=== PATIENT | male | born 1985 | race Caucasian/White ===

== ENCOUNTER 2021-03-21 01:55 | Inpatient (IN) | payer BC ==
[~2021-03-21] VITALS: Ht 162.6 cm; Wt 63.5 kg
--- NOTE | 2021-03-21 02:11 | NUR ---
Dr. Griggs at bedside for MSE.
[2021-03-21] MEDS ORDERED: ONDANSETRON 4 MG/2 ML VIAL IV ONE (02:15)
[2021-03-21] MEDS ORDERED: MORPHINE SULFATE 4 MG/1 ML DISP.SYRIN IV ONE (02:15)
[2021-03-21] MEDS ORDERED: IV NORMAL SALINE 100 ML BAG IV ONE (02:15)
[2021-03-21] MEDS ORDERED: MORPHINE SULFATE 4 MG/1 ML DISP.SYRIN ONE (02:24)
[2021-03-21] MEDS ORDERED: ONDANSETRON 4 MG/2 ML VIAL ONE (02:25)
[2021-03-21 02:30] LABS: HEMATOCRIT 45.6 % (36.7-47.1); MEAN CORPUSCULAR HEMOGLOBIN 31.6 uug (23.8-33.4); MEAN CORPUSCULAR VOLUME 91.2 fL (73.0-96.2); PLATELET COUNT (AUTO) 244 K/uL (152-348)
[2021-03-21 02:35] LABS: POTASSIUM 4.3 mmol/L (3.5-5.1)
[2021-03-21 02:41] LABS: BILIRUBIN,TOTAL 1.4 mg/dL (0.2-1.0); TOTAL PROTEIN, SERUM 7.1 g/dL (6.4-8.2)
[2021-03-21] MEDS ORDERED: SWABABLE VALVE TRANSFER SET EA MC ONE (02:42)
[2021-03-21] MEDS ORDERED: IOHEXOL 300MG/ML 100 ML INFUS..BTL ONE (02:42)
[2021-03-21] MEDS ORDERED: IV NORMAL SALINE 250 ML IV ONE (02:42)
--- NOTE | 2021-03-21 02:43 | NUR ---
Pt out of ER from CT.
[2021-03-21] MEDS ORDERED: METRONIDAZOLE 500 MG/NS 100 ML PIGGYBACK IV ONE (02:45)
[2021-03-21] MEDS ORDERED: CEFTRIAXONE 1 G in IV DEXTROSE 5% 50 ML IV ONE (02:45)
[2021-03-21] MEDS ORDERED: CEFTRIAXONE /D5W 50ML IVPB **ER PYXIS IV ONE (02:55)
--- NOTE | 2021-03-21 02:55 | NUR ---
Pt back to ER from CT.
[2021-03-21 03:18] LABS: *BILIRUBIN,URIN NEGATIVE (NEGATIVE); *BLOOD, URINE NEGATIVE (NEGATIVE); *CLARITY,URINE CLEAR (CLEAR); *COLOR,URINE YELLOW (YELLOW); *KETONES,URINE NEGATIVE (NEGATIVE); *UROBILINOGEN,URINE 0.2 E.U./dl (NORMAL); LEUKOCYTE ESTERASE ,URINE NEGATIVE (NEGATIVE); NITRITE, URINE NEGATIVE (NEGATIVE); PH,URINE 7.5 (5.0-8.0); UGLUCOSE NEGATIVE (NEGATIVE)
[2021-03-21] MEDS ORDERED: METRONIDAZOLE 500 MG/NS 100ML 100 ML IV ONE (03:22)
--- NOTE | 2021-03-21 04:01 | NUR ---
CALLED [facility] SPOKE WITH NATHALIE, CT IS "BEING READ RIGHT NOW".
--- NOTE | 2021-03-21 04:13 | NUR ---
Called [facility] to page Marichuy Ceron NP.
--- NOTE | 2021-03-21 04:21 | NUR ---
Dr. Griggs on panel call with Marichuy Ceron NP.
[2021-03-21] MEDS ORDERED: IV D5W-0.45% NS +20 KCL 1,000 ML IV PRN (04:45)
[2021-03-21] MEDS ORDERED: MORPHINE SULFATE 2 MG/1 ML DISP.SYRIN IV PRN (04:45)
[2021-03-21] MEDS ORDERED: ACETAMINOPHEN 325 MG TABLET PO PRN (04:45)
[2021-03-21] MEDS ORDERED: ONDANSETRON 4 MG/2 ML VIAL IV PRN (04:45)
[2021-03-21] MEDS ORDERED: Z GUARD REMEDY PASTE 57 GM TUBE TOP PRN (04:45)
[2021-03-21] MEDS ORDERED: MAGNESIUM HYDROXIDE 30 ML LIQUID UDC PO PRN (04:45)
--- NOTE | 2021-03-21 05:14 | NUR ---
Ultrasound at bedside.
--- NOTE | 2021-03-21 06:24 | NUR ---
Report given to Mirela BOYKIN Medsurg.
[2021-03-21 06:51] VITALS: BP 107/59
[2021-03-21] MEDS ORDERED: PANTOPRAZOLE SODIUM 40 MG VIAL IV SCH (09:00)
--- NOTE | 2021-03-21 09:37 | NUR ---
received this morning awake, alert and oriented x4. no acute distress. stated he did not sleep well d/t was in ER at 2am. no n/v/d reported. c/o abdominal pain and requested prn pain medication and was given. needs attended. kept comfortable. call light in reach. will cont to monitor.
--- NOTE | 2021-03-21 11:15 | NUR ---
pt wishes to go [facility]. no acute distress. pain relieved by medication earlier. risks of leaving [facility] and benefits of staying to continue with tx explained but still wishes to go [facility]. respected patient's rights. removed iv and id band. pt has all his belongings and will be picked up by his parents. brittani hall on the floor aware and said it's ok. pt left ambulatory.
[2021-03-21 11:30] VITALS: BP 109/59
[2021-03-21] MEDS ORDERED: METRONIDAZOLE 500 MG/NS 100ML 500 MG in PREMIXED 1 EACH IV SCH (12:00)
[2021-03-22] MEDS ORDERED: CEFTRIAXONE 1 G in IV DEXTROSE 5% 50 ML IV SCH (03:00)
== END 2021-03-21 11:15 | disposition left against medical advice (07) | DRG 392 ==
LOC: ER 01:57 → MEDSURG3 06:20
PROVIDERS: ADMIT Hospitalist; ATTEND Hospitalist
DX: R10.9 Unspecified abdominal pain (principal); D72.829 Elevated white blood cell count, unspecified; Z20.822 Contact with and (suspected) exposure to COVID-19; E80.6 Other disorders of bilirubin metabolism
CPT/HCPCS: 36415; 76705; 83605; 83690; 85025; 85610; 86850; 86900; 86901; A4663; C9113; G0378; J0696; J2270; J2405; J3490; J7030; J7050; J7060; Q9967